=== PATIENT | male | born 1960 | race Caucasian/White ===

== ENCOUNTER → 2024-12-03 | Outpatient (CLI) | payer BC | LOC: LAB 08:26 → LAB SHORT 08:26 | DX: D04.22 Carcinoma in situ of skin of left ear and external auricular canal (principal); L57.0 Actinic keratosis | CPT/HCPCS: 88305 ==

== ENCOUNTER → 2025-09-04 | Outpatient (CLI) | payer OTHER | END | disposition home or self-care (01) | LOC: LAB SHORT 09:22 → LAB 09:22 | DX: L57.0 Actinic keratosis (principal) | CPT/HCPCS: 88305 ==